=== PATIENT | male | born 1995 | race Caucasian/White ===

== ENCOUNTER 2018-04-30 13:59 | Observation (INO) ==
[2018-04-30] MEDS ORDERED: NORMAL SALINE 1,000 ML IV ONE ×2 (14:18→15:49)
--- NOTE | 2018-04-30 14:33 | ERNOTE ---
Medical Problem HPI - Narrative Date of Service: 04/30/18 - General Chief Complaint: Diabetes Related Problem Time Seen by Provider: 04/30/18 14:19 Source: patient, RN notes reviewed Exam Limitations: clinical condition - Immun/Allergies/Home Medications Immunizations: IMMUNIZATION HX Immunizations Up to Date Yes History of Influenza Vaccine Yes Hx Pneumococcal Vaccination No Allergies/Adverse Reactions: Allergies No Known Allergies Allergy (Unverified 04/30/18 14:10) Home Medications: HOME MEDICATIONS Insulin Glargine,Hum.rec.anlog [Lantus] 50 units SC HS 04/30/18 [Last Taken Unknown] Insulin Lispro [Humalog] See Protocol SQ TID 04/30/18 [Last Taken Unknown] - History of Present History Narrative: Raz is a 22 year old male who presents to the ED not feeling well after not having any insulin for over a week. He is a type I diabetic. He reports losing his home and has been staying in various places. He had been living in [place]. He does not know who had been prescribing his insulin. Timing: getting worse Review of Systems - Review of Systems Constitutional: Present: fatigue, malaise EYE: Present: no symptoms reported ENT: Present: no symptoms reported Respiratory: Present: no symptoms reported Cardiology: Present: no symptoms reported Gastrointestinal/Abdominal: Present: nausea, vomiting Genitourinary: Present: no symptoms reported Musculoskeletal: Present: no symptoms reported Skin: Present: no symptoms reported Neurological: Present: no symptoms reported Endocrine: Present: no symptoms reported Hematologic/Lymphatic: Present: no symptoms reported Psych: Present: no symptoms reported Medical History (Last Reviewed 04/30/18 @ 15:47 by Renae Landry NP) DKA (diabetic ketoacidoses) Diabetes mellitus type 1 Surgical History: Surgical History (Last Reviewed 04/30/18 @ 15:47 by Renae Landry NP) No pertinent past surgical history Family History: Family History (Last Updated 04/30/18 @ 17:45 by Symone Espinal RN) Other No pertinent family history Social History: Preferred Language Hungarian Do you have any gnosticism or No cultural preference? Smoking Status Current every day smoker Have you smoked in the past 12 Yes months Do you dip or chew tobacco No Alcohol Use none Drug Use marijuana No Social History Section defined Physical Exam - Physical Exam General Appearance: Present: alert, mild distress, cachetic, other - Generally ill appearing, extremely dirty Head Exam: Present: normal inspection Eye Exam: Normal inspection: bilateral Ears, Nose, Throat: Present: normal ENT inspection, normal pharynx Neck: Present: normal inspection, nontender, supple Respiratory: Present: no respiratory distress, normal breath sounds, no accessory muscle use, lungs clear Cardiovascular/Chest: Present: regular rate, rhythm, no murmur, normal peripheral pulses Gastrointestinal/Abdominal: Present: normal bowel sounds, nontender, nondistended, soft Extremity Exam: Present: normal inspection, normal range of motion Neurological Exam: Present: alert, oriented, no motor/sensory deficits, other - flat affect, depressed appearing Skin Exam: Present: warm/dry, pallor Progress - Results and Orders Patient's Lab Results:: I have reviewed the patient's lab results. - Vital Signs Patient's Vital Signs:: I have reviewed the patient's vital signs. Vital Signs: Vital Signs 04/30/18 14:04 Temperature 36.4 C Pulse Rate 91 Respiratory Rate 14 Blood Pressure 112/72 O2 Sat by Pulse Oximetry 100 - EKG EKG #1 EKG: ST elevation, other - SR EKG read: Reviewed by me - X-Ray X-Ray #1 X-Ray: chest Interpretation: Interp. by me X-ray Comments: No acute cardiopulmonary findings - Progress/Reassessment Chief Complaint: Diabetes Related Problem Progress:: Improved Plan - Plan Plan: Initial blood glucose was 684 with positive serum ketones. His urine did not show ketones, but this was obtained after insulin and fluids had been given. A bolus dose of 6 units of regular insulin was given and a drip was started. He was also given 2 liters of IV NS. His chemistries were essentially unremarkable with a normal potassium and normal venous pH. His EKG shows ST elevation but his troponin was negative. This may be due to amphetamine use. Dr. Cabral was contacted regarding admission. He requested an ABG be done. This showed a normal pH as well. He then agreed to admit the patient to observation status. The blood glucose had come down to 403. He will be given Humalog and the drip will be discontinued. He was given Zofran for nausea and has been tolerating ice chips well. Departure Clinical Impression: Hyperglycemia due to type 1 diabetes mellitus, Ketosis, Amphetamine abuse - Departure Disposition: Still a patient Condition: Stable
[2018-04-30 14:36] LABS: Hematocrit 38.6 % (42.0-52.0); Hemoglobin 13.6 gm/dL (13.5-18.0); Mean Cell Volume 86.7 fl (78-100); Mean Corpuscular Hemoglobin 30.6 pg (27-31); Mean Corpuscular Hgb Conc 35.2 g/dl (32-36); Mean Platelet Volume 9.4 fl (8-11.3); Neutrophil # 8.3 K/mm3 (1.3-6.0); Neutrophil % 69.7 % (42-75.0); Platelet Count 446 K/mm3 (150-450); Red Blood Count 4.45 M/mm3 (4.7-6.0); Red Cell Distribution Width 12.4 % (11.5-14.0)
[2018-04-30 14:53] LABS: ALT 24 U/L (19-67); AST 11 U/L (0-48); Albumin * 2.4 gm/dl (3.4-5.0); Alkaline Phosphatase * 109 U/L (50-170); Anion Gap 12.1 mmol/L (6.8-13.8); BUN/Creatinine Ratio 21.1 (9.0-21.6); Bilirubin, Total 0.3 mg/dL (0.0-1.1); Blood Urea Nitrogen 16 mg/dL (6-23); Ca. Corrected For Albumin 9.1 mg/dL (8.4-10.2); Calcium * 8.1 mg/dL (7.9-10.9); Carbon Dioxide 27.3 mmol/L (24-32.6); Chloride 91 mmol/L (97-106); Potassium 4.4 mmol/L (3.4-4.6); Sodium 126 mmol/L (132-142)
[2018-04-30 14:55] LABS: Glucose * 684 mg/dL (70-110)
[2018-04-30] MEDS ORDERED: ONDANSETRON HCL/PF 2 MG/ML VIAL IV ONE (14:55)
[2018-04-30] MEDS ORDERED: INSULIN REGULAR, HUMAN 100 UNITS/ML VIAL IV ONE (15:00)
[2018-04-30] MEDS ORDERED: INSULIN REGULAR, HUMAN 100 UNITS in NORMAL SALINE 100 ML IV PRN ×2 (15:00)
[2018-04-30 16:14] LABS: Urine Appearance Clear (CLEAR); Urine Color Yellow
[2018-04-30 16:15] LABS: Urine Bacteria None Seen; Urine Bilirubin Negative (NEGATIVE); Urine Blood Negative /ul (NEGATIVE); Urine Ketone 50 mg/dL (NEGATIVE); Urine Nitrite Negative (NEGATIVE); Urine Protein Negative (NEGATIVE); Urine RBC None Seen /hpf (0-5); Urine Urobilinogen Normal (NORMAL); Urine WBC None Seen /hpf (0-5)
[2018-04-30 16:16] LABS: Troponin I Less than 0.017 ng/mL (0.00-0.10)
[2018-04-30 16:17] LABS: Cocaine Ur Negative (NEGATIVE); Urine Barbiturate Negative (NEGATIVE); Urine Benzodiazepines Negative (NEGATIVE); Urine Opiates Negative (NEGATIVE); Urine PCP Negative (NEGATIVE); Urine THC Negative (NEGATIVE)
[2018-04-30] MEDS ORDERED: INSULIN LISPRO 100 UNITS/ML VIAL SC ONE (17:23)
[2018-04-30 20:04] LABS: Anion Gap 8.4 mmol/L (6.8-13.8); BUN/Creatinine Ratio 30.4 (9.0-21.6); Calcium * 8.1 mg/dL (7.9-10.9); Carbon Dioxide 29.2 mmol/L (24-32.6); Estimated Creat Clear 279.8; Potassium 3.6 mmol/L (3.4-4.6)
--- NOTE | 2018-04-30 20:14 | HP ---
Chief Complaint - Chief Complaint Date of Service: 04/30/18 Time of Service: 19:32 Chief Complaint: nausea and vomiting History of Present Illness: Deven Ybarra, is a 22-year-old white male, with past medical history of diabetes mellitus type 1 insulin-dependent, who was admitted on 04/30/2018 because of nausea and vomiting. 7-10 days prior to admission, the patient was kicked out from his apartment and the patient was not able to bring out most of his things. He he then ran out of his medications and started having increased frequency of urination associated with generalized malaise. Today the patient started to have some nausea and vomiting and so he was brought to the emergency room. His blood sugar was 684, positive ketones in his serum, but negative in his urine. He was given regular insulin bolus 1 and started on an insulin drip. His ABG showed a pH of 7.39, PCO2 of 34, PO2 of 100.5, HCO3 of 20.3, oxygen saturation of 97.6%. His Na 126 but 135 corrected for BS, AG 12.1, CO2 27.3. His UDS was poitive for amphetamine. He says he took adderall 2 days ago from his friend as he was not feeling well. His EKG showed sinus rhtym, elevated ST r/o injury, pericarditis. He does not know who his doctor is and who has been prescribing his insulin for him. Since being kicked out of his apartment , he has been staying in and out of friends and has not been eating regularly. Medical History (Last Reviewed 04/30/18 @ 20:59 by Laura Maharaj RN) DKA (diabetic ketoacidoses) Diabetes mellitus type 1 Surgical History: Surgical History (Last Reviewed 04/30/18 @ 20:59 by Laura Maharaj RN) No pertinent past surgical history Family History: Family History (Last Reviewed 04/30/18 @ 20:59 by Laura Maharaj RN) Other No pertinent family history Social History: Preferred Language Upper Sorbian Do you have any adventism or No cultural preference? Smoking Status Current every day smoker Have you smoked in the past 12 Yes months Do you dip or chew tobacco No Alcohol Use none Drug Use marijuana No Social History Section defined Review Of Systems (GEN) - Review of Systems Generalized/Overall Review: Present: Weakness. Absent: Chills, Fever EENTM: Absent: Blurred Vision Respiratory: Absent: Cough, Shortness of Breath, Wheezing Cardiac: Absent: Chest Pain, Edema, Palpitations Abdominal: Present: Nausea, Vomiting Genitourinary: Present: Frequency. Absent: Urgency Musculoskeletal: Absent: Joint Pain Immunizations: IMMUNIZATION HX Immunizations Up to Date Yes History of Influenza Vaccine Yes Hx Pneumococcal Vaccination No Allergies/Adverse Reactions: Allergies Allergy/AdvReac Type Severity Reaction Status Date / Time No Known Allergies Allergy Unverified 04/30/18 14:10 Home Medications: HOME MEDICATIONS Insulin Glargine,Hum.rec.anlog [Lantus] 50 units SC HS 04/30/18 [Last Taken Unknown] Insulin Lispro [Humalog] See Protocol SQ TID 04/30/18 [Last Taken Unknown] Exam - Exam Vital Signs: Vital Signs - Last Taken Temp 36.5 C 04/30/18 18:42 Pulse 80 04/30/18 18:42 Resp 20 04/30/18 18:42 BP 92/54 04/30/18 18:42 Pulse Ox 98 04/30/18 18:42 Constitutional: Present: Alert, Oriented x3, Cooperative, Thin and frail ENT Exam: Present: hearing grossly normal Eye Exam: bilateral eye: normal inspection, PERRL, EOMI Neck: Present: supple Respiratory: Present: normal breath sounds, No rales, No wheezing Cardiovascular/Chest: Present: regular rate, rhythm, no JVD, no murmur Abdomen: Present: Normal bowel sounds, soft, nontender, nondistended Extremity: Present: no pedal edema, no calf tenderness Diagnostic Studies: Abnormal Lab Results 04/30/18 04/30/18 04/30/18 Range/Units 14:30 14:30 15:57 WBC 12.0 H (4.0-10.5) K/mm3 RBC 4.45 L (4.7-6.0) M/mm3 Hct 38.6 L (42.0-52.0) % Immature Gran % (Auto) 0.60 H (0.001-0.429) % Immature Gran # (Auto) 0.07 H (0.000-0.0310) K/mm3 Neutrophils # 8.3 H (1.3-6.0) K/mm3 pCO2 (35.0-48.0) mmHg HCO3 (21.0-28.0) mmol/L Base Excess (-2.0-3.0) mmol/L Sodium 126 L (132-142) mmol/L Chloride 91 L (97-106) mmol/L Est GFR (Non-Af Amer) 134 H (60-130) mL/min Random Glucose 684 H* (70-110) mg/dL Total Protein 5.0 L (6.2-8.2) gm/dL Albumin 2.4 L (3.4-5.0) gm/dl Urine Glucose (UA) >=1000 H (NEGATIVE) mg/dL Urine Amphetamine (NEGATIVE) Serum Ketones Positive - 20mg/dl H (NEGATIVE) 04/30/18 04/30/18 Range/Units 15:57 17:10 WBC (4.0-10.5) K/mm3 RBC (4.7-6.0) M/mm3 Hct (42.0-52.0) % Immature Gran % (Auto) (0.001-0.429) % Immature Gran # (Auto) (0.000-0.0310) K/mm3 Neutrophils # (1.3-6.0) K/mm3 pCO2 34.0 L (35.0-48.0) mmHg HCO3 20.3 L (21.0-28.0) mmol/L Base Excess -3.8 L (-2.0-3.0) mmol/L Sodium (132-142) mmol/L Chloride (97-106) mmol/L Est GFR (Non-Af Amer) (60-130) mL/min Random Glucose (70-110) mg/dL Total Protein (6.2-8.2) gm/dL Albumin (3.4-5.0) gm/dl Urine Glucose (UA) (NEGATIVE) mg/dL Urine Amphetamine Positive H (NEGATIVE) Serum Ketones (NEGATIVE) Laboratory Results WBC 12.0 K/mm3 (4.0-10.5) H 04/30/18 14:30 RBC 4.45 M/mm3 (4.7-6.0) L 04/30/18 14:30 Hgb 13.6 gm/dL (13.5-18.0) 04/30/18 14:30 Hct 38.6 % (42.0-52.0) L 04/30/18 14:30 MCV 86.7 fl (78-100) 04/30/18 14:30 MCH 30.6 pg (27-31) 04/30/18 14:30 MCHC 35.2 g/dl (32-36) 04/30/18 14:30 RDW 12.4 % (11.5-14.0) 04/30/18 14:30 Plt Count 446 K/mm3 (150-450) 04/30/18 14:30 MPV 9.4 fl (8-11.3) 04/30/18 14:30 Immature Gran % (Auto) 0.60 % (0.001-0.429) H 04/30/18 14:30 Immature Gran # (Auto) 0.07 K/mm3 (0.000-0.0310) H 04/30/18 14:30 Neutrophils % 69.7 % (42-75.0) 04/30/18 14:30 Lymphocytes % 24.5 % (20-51) 04/30/18 14:30 Monocytes % 3.9 % (0.0-9) 04/30/18 14:30 Eosinophils % 0.8 % (0.0-3.0) 04/30/18 14:30 Basophils % 0.5 % (0.0-1.0) 04/30/18 14:30 Nucleated RBC % 0.0 k/mm3 (0-1) 04/30/18 14:30 Neutrophils # 8.3 K/mm3 (1.3-6.0) H 04/30/18 14:30 Lymphocytes # 2.93 k/mm3 (1.5-3.5) 04/30/18 14:30 Monocytes # 0.5 k/mm3 (0.0-1.0) 04/30/18 14:30 Eosinophils # 0.1 k/mm3 (0.0-0.7) 04/30/18 14:30 Absolute Basophils 0.1 k/mm3 (0.0-0.1) 04/30/18 14:30 ESR 8 mm/hr (0-10) 04/30/18 14:36 pCO2 34.0 mmHg (35.0-48.0) L 04/30/18 17:10 pO2 100.5 mmHg (83.0-108.0) 04/30/18 17:10 HCO3 20.3 mmol/L (21.0-28.0) L 04/30/18 17:10 Total CO2 21.3 mmol/L (19.0-24.0) 04/30/18 17:10 Base Excess -3.8 mmol/L (-2.0-3.0) L 04/30/18 17:10 ABG pH 7.39 (7.35-7.45) 04/30/18 17:10 ABG O2 Sat (Measured) 97.6 % (94.0-98.0) 04/30/18 17:10 VBG pH 7.326 (7.32-7.43) 04/30/18 14:30 Sodium 126 mmol/L (132-142) L 04/30/18 14:30 Plasma Sodium 135 mmol/L (130-142) 04/30/18 14:30 Potassium 4.4 mmol/L (3.4-4.6) 04/30/18 14:30 Chloride 91 mmol/L (97-106) L 04/30/18 14:30 Carbon Dioxide 27.3 mmol/L (24-32.6) 04/30/18 14:30 Anion Gap 12.1 mmol/L (6.8-13.8) 04/30/18 14:30 BUN 16 mg/dL (6-23) 04/30/18 14:30 Creatinine 0.76 mg/dL (0.4-1.4) 04/30/18 14:30 Est GFR (Non-Af Amer) 134 mL/min (60-130) H 04/30/18 14:30 BUN/Creatinine Ratio 21.1 (9.0-21.6) 04/30/18 14:30 Random Glucose 684 mg/dL (70-110) H* 04/30/18 14:30 Lactic Acid, Venous 1.0 mmol/L (0.4-2.0) 04/30/18 14:30 Calcium 8.1 mg/dL (7.9-10.9) 04/30/18 14:30 Calcium Adj for Albumin 9.1 mg/dL (8.4-10.2) 04/30/18 14:30 Total Bilirubin 0.3 mg/dL (0.0-1.1) 04/30/18 14:30 AST 11 U/L (0-48) 04/30/18 14:30 ALT 24 U/L (19-67) 04/30/18 14:30 Alkaline Phosphatase 109 U/L (50-170) 04/30/18 14:30 Troponin I Less than 0.017 ng/mL (0.00-0.10) 04/30/18 14:36 C-Reactive Prot, Quant Less than 0.2 mg/dL (0.0-0.9) 04/30/18 14:36 Total Protein 5.0 gm/dL (6.2-8.2) L 04/30/18 14:30 Albumin 2.4 gm/dl (3.4-5.0) L 04/30/18 14:30 Urine Color Yellow 04/30/18 15:57 Urine Appearance Clear (CLEAR) 04/30/18 15:57 Urine pH 6.0 pH (5.0-7.0) 04/30/18 15:57 Ur Specific [place] 1.010 SP.GR. (1.005-1.030) 04/30/18 15:57 Urine Protein Negative mg/dL (NEGATIVE) 04/30/18 15:57 Urine Glucose (UA) >=1000 mg/dL (NEGATIVE) H 04/30/18 15:57 Urine Ketones 50 mg/dL (NEGATIVE) 04/30/18 15:57 Urine Blood Negative /ul (NEGATIVE) 04/30/18 15:57 Urine Nitrate Negative (NEGATIVE) 04/30/18 15:57 Urine Bilirubin Negative mg/dl (NEGATIVE) 04/30/18 15:57 Urine Urobilinogen Normal EU/dl (NORMAL) 04/30/18 15:57 Ur Leukocyte Esterase Negative /ul (NEGATIVE) 04/30/18 15:57 Urine RBC None seen /hpf (0-5) 04/30/18 15:57 Urine WBC None seen /hpf (0-5) 04/30/18 15:57 Ur Epithelial Cells 0-5 /hpf (0-5) 04/30/18 15:57 Urine Bacteria None seen (NONE) 04/30/18 15:57 Urine Culture Comments No culture indicated 04/30/18 15:57 Urine Opiates Screen Negative (NEGATIVE) 04/30/18 15:57 Barbiturate Screen Negative (NEGATIVE) 04/30/18 15:57 Ur Phencyclidine Scrn Negative (NEGATIVE) 04/30/18 15:57 Urine Amphetamine Positive (NEGATIVE) H 04/30/18 15:57 U Benzodiazepines Scrn Negative (NEGATIVE) 04/30/18 15:57 Urine Cocaine Screen Negative (NEGATIVE) 04/30/18 15:57 Urine Marijuana (THC) Negative (NEGATIVE) 04/30/18 15:57 Ethyl Alcohol Less than 3.0 mg/dL (0.0-10.0) 04/30/18 14:30 Serum Ketones Positive - 20mg/dl (NEGATIVE) H 04/30/18 14:30 Assessment/Plan - Assessment/Plan (1) Hyperglycemia due to type 1 diabetes mellitus Assessment: due to missed medications. d/c Insulin drip. will resume his lantus and keep on Humalog SSI high dose. resume diabetic consistent diet. Problem: Acute (2) Ketosis Assessment: likely due to starvation ketosis. has been missing meals . r/o beginning DKA Problem: Acute (3) Amphetamine adverse reaction Assessment: denies amphetamine abuse. EKg showed St elevations/N/V. he says since he was not feeling well, his friend offered him Adderall and he took it. Problem: Acute
[2018-04-30] MEDS: NORMAL SALINE 1,000 ML IV PRN (20:44)
[2018-04-30] MEDS ORDERED: INSULIN GLARGINE,HUM.REC.ANLOG 100 UNITS/ML VIAL SC SCH (21:00)
[2018-04-30] MEDS: INSULIN LISPRO 100 UNITS/ML VIAL SC SCH (21:09)
[2018-05-01] MEDS: NORMAL SALINE 1,000 ML IV PRN ×2 (01:48→06:57)
[2018-05-01] MEDS: INSULIN LISPRO 100 UNITS/ML VIAL SC SCH ×2 (07:00→11:39)
[2018-05-01 09:36] LABS: Hematocrit 34.9 % (42.0-52.0); Hemoglobin 12.5 gm/dL (13.5-18.0); Mean Corpuscular Hemoglobin 30.8 pg (27-31); Mean Corpuscular Hgb Conc 35.8 g/dl (32-36); Mean Platelet Volume 9.4 fl (8-11.3); Neutrophil # 9.6 K/mm3 (1.3-6.0); Neutrophil % 68.5 % (42-75.0); Platelet Count 409 K/mm3 (150-450); Red Blood Count 4.06 M/mm3 (4.7-6.0); Red Cell Distribution Width 12.3 % (11.5-14.0)
--- NOTE | 2018-05-01 09:42 | DS ---
(1) Hyperglycemia due to type 1 diabetes mellitus Problem: Resolved (2) Ketosis Problem: Resolved (3) Amphetamine adverse reaction Problem: Resolved Description of Stay: sree Ybarra, is a 22-year-old white male, with past medical history of diabetes mellitus type 1 insulin-dependent, who was admitted on 04/30/2018 because of nausea and vomiting. 7-10 days prior to admission, the patient was kicked out from his apartment and the patient was not able to bring out most of his things. He then ran out of his medications and started having increased frequency of urination associated with generalized malaise. Today the patient started to have some nausea and vomiting and so he was brought to the emergency room by his friend. His blood sugar was 684, positive ketones in his serum, but negative in his urine. He was given IVF bolus, regular insulin bolus 1 and started on an insulin drip. His ABG showed a pH of 7.39, PCO2 of 34, PO2 of 100.5, HCO3 of 20.3, oxygen saturation of 97.6%. His Na 126 but 135 corrected for BS, AG 12.1, CO2 27.3. His UDS was poitive for amphetamine. He says he took adderall 2 days ago from his friend as he was not feeling well. His EKG showed sinus rhtym, elevated ST r/o injury, pericarditis. His troponin was negative and he was not having chest pain. His ESR was normal. He does not know who his doctor is and who has been prescribing his insulin for him. Since being kicked out of his apartment , he has been staying in and out of friends and has not been eating regularly. His IVF were continued, insulin drip discontinued, and his home insulin dose were restarted. He tolerated diabetic consistent diet. His BS this morning is 161 and he is stable to be discharged. He says he has insurance for his insulin and [facility] in [place] called him and fill his prescription. His request is if he can eat another breakfast course before he goes home. He will follow up with is PCP next week. Procedures Performed: none Results and Findings: Lab Pending Results 04/30/18 14:30: WBC 12.0 H, RBC 4.45 L, Hgb 13.6, Hct 38.6 L, MCV 86.7, MCH 30.6, MCHC 35.2, RDW 12.4, Plt Count 446, MPV 9.4, Immature Gran % (Auto) 0.60 H, Immature Gran # (Auto) 0.07 H, Neutrophils % 69.7, Lymphocytes % 24.5, Monocytes % 3.9, Eosinophils % 0.8, Basophils % 0.5, Nucleated RBC % 0.0, Neutrophils # 8.3 H, Lymphocytes # 2.93, Monocytes # 0.5, Eosinophils # 0.1, Absolute Basophils 0.1 04/30/18 14:30: Sodium 126 L, Plasma Sodium 135, Potassium 4.4, Chloride 91 L, Carbon Dioxide 27.3, Anion Gap 12.1, BUN 16, Creatinine 0.76, Est GFR (Non-Af Amer) 134 H, BUN/Creatinine Ratio 21.1, Random Glucose 684 H*, Calcium 8.1, Calcium Adj for Albumin 9.1, Total Bilirubin 0.3, AST 11, ALT 24, Alkaline Phosphatase 109, Total Protein 5.0 L, Albumin 2.4 L, Ethyl Alcohol Less than 3.0, Serum Ketones Positive - 20mg/dl H 04/30/18 14:30: VBG pH 7.326 04/30/18 14:30: Lactic Acid, Venous 1.0 04/30/18 14:36: ESR 8 04/30/18 14:36: Troponin I Less than 0.017, C-Reactive Prot, Quant Less than 0.2 04/30/18 15:57: Urine Color Yellow, Urine Appearance Clear, Urine pH 6.0, Ur Specific [place] 1.010, Urine Protein Negative, Urine Glucose (UA) >=1000 H, Urine Ketones 50, Urine Blood Negative, Urine Nitrate Negative, Urine Bilirubin Negative, Urine Urobilinogen Normal, Ur Leukocyte Esterase Negative, Urine RBC None seen, Urine WBC None seen, Ur Epithelial Cells 0-5, Urine Bacteria None seen, Urine Culture Comments No culture indicated 04/30/18 15:57: Urine Opiates Screen Negative, Barbiturate Screen Negative, Ur Phencyclidine Scrn Negative, Urine Amphetamine Positive H, U Benzodiazepines Scrn Negative, Urine Cocaine Screen Negative, Urine Marijuana (THC) Negative 04/30/18 17:10: pCO2 34.0 L, pO2 100.5, HCO3 20.3 L, Total CO2 21.3, Base Excess -3.8 L, ABG pH 7.39, ABG O2 Sat (Measured) 97.6 04/30/18 19:50: Sodium 133, Plasma Sodium 136, Potassium 3.6, Chloride 99, Carbon Dioxide 29.2, Anion Gap 8.4, BUN 14, Creatinine 0.46, Est GFR (Non-Af Amer) 239 H D, BUN/Creatinine Ratio 30.4 H, Random Glucose 305 H D, Calcium 8.1 04/30/18 19:50: Mean Blood Glucose 380, Hemoglobin A1c 14.0 H Discharge Location: Home Disposition: Home self-care Condition: Stable Discharge Activity: Activity as tolerated Discharge Diet: Consistent carbs Additional Patient Instructions (free text): Follow with his PCP in 1 week. He may see me x 1. Prescriptions (Any new or edited meds): Insulin Aspart [Novolog] 10 units SC TIDWM #1 vial Complete Home Medications List: Complete Home Medication List: Insulin Glargine,Hum.rec.anlog [Lantus] 50 units SC HS 04/30/18 Insulin Aspart [Novolog] 10 units SC TIDWM #1 vial 05/01/18
[2018-05-01 09:54] LABS: Anion Gap 8.9 mmol/L (6.8-13.8); BUN/Creatinine Ratio 18.8 (9.0-21.6); Calcium * 7.7 mg/dL (7.9-10.9); Carbon Dioxide 26.9 mmol/L (24-32.6); Chol/HDL Risk Ratio 2.9 mg/dL (3.3-5.0); Estimated Creat Clear 201.1; Potassium 3.8 mmol/L (3.4-4.6)
[2018-05-01 12:35] VITALS: BP 127/84
== END 2018-05-01 13:25 | disposition home or self-care (01) ==
LOC: MS 13:59 → ER 13:59 → MS 18:10
PROVIDERS: ADMIT Internal Medicine; ATTEND Internal Medicine
CPT/HCPCS: 36415; 36600; 71020; 71046; 80048; 80053; 80061; 80307; 80320; 81001; 82009; 82800; 82803; 83036; 83605; 84484; 85025; 85652; 86140; 93005; 96365; 96366; 96372; 96375; 99285; G0378; G0481; J2405